=== PATIENT | male | born 1935 | race Caucasian/White ===

== ENCOUNTER → 2016-07-15 | Outpatient (CLI) | payer MEDICARE, BC ==
[~2016-07-15] MED LIST: 3N1 COMMODE MC; BUPR150T6 PO; CALC1TAB2 PO; LISI10TA2 PO; LOSA25TA2 PO; MULT1CAP20 PO; OXYC-481 PO; TAMS-14 PO; WALK1EAC23 MC; WARF1TAB47 PO
--- NOTE | 2016-07-15 16:01 | RADRPT ---
PROCEDURE: XR pelvis/right hip. CLINICAL INDICATION: Hip pain TECHNIQUE: AP pelvis/AP and lateral right hip views available for review. 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 There is no change in the left total hip replacement . There is diffuse osteopenia. There is no evidence of loosening of the prosthesis. No fractures, disl ocation or osseous lesions are identified. The joints are unremarkable. There are normal soft tissue s. IMPRESSION: Diffuse osteopenia. 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 No change in left total hip replacement RPTAT: HGDB .Chidi Dorsey MD, MD Date Time Electronically viewed and signed by .Chidi Dorsey MD, on 07/15/2016 16:00 .B/
--- NOTE | 2016-07-15 16:04 | RADRPT ---
PROCEDURE: XR right knee. CLINICAL INDICATION: Knee pain TECHNIQUE: AP weightbearing, lateral weightbearing and sunrise views are available for review. COMPARISON: 09/05/2013 FINDINGS: There is mild osteoarthrosis involving the medial tibial femoral compartment (joint space narrowing) and the patellofemoral compartment (osteophytosis). There is diffuse osteopenia. No fractures are identified. No osseous lesions are identified. The soft tissues are unremarkable. 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 RPTAT: HGDB .Chidi Dorsey MD, MD Date Time Electronically viewed and signed by .Chidi Dorsey MD, MD on 07/15/2016 16:03 .B/
--- NOTE | 2016-07-15 16:06 | RADRPT ---
PROCEDURE: XR right tibia/fibula. CLINICAL INDICATION: Leg pain TECHNIQUE: AP and lateral views of the lower tibia and fibula available for review. COMPARISON: None available FINDINGS: There is diffuse osteopenia. No fractures are identified. No osseous lesions are identified. The joints are unremarkable. The soft tissues are unremarkable. IMPRESSION: Diffuse osteopenia Otherwise unremarkable examination RPTAT: HGDB .Chidi Dorsey MD, MD Date Time Electronically viewed and signed by .Chidi Dorsey MD, MD on 07/15/2016 16:05 .B/
== END | disposition home or self-care (01) ==
LOC: HKI 13:59
PROVIDERS: ATTEND Orthopaedic Surgery
DX: M79.661 Pain in right lower leg (principal); Z96.643 Presence of artificial hip joint, bilateral
CPT/HCPCS: 73502; 73562; 73590; G0463

== ENCOUNTER → 2016-11-18 | Outpatient (CLI) | payer MEDICARE, BC ==
--- NOTE | 2016-11-18 16:43 | RADRPT ---
PROCEDURE: XR Right hip and pelvis. CLINICAL INDICATION: Right hip pain. Pelvic pain. Postop. TECHNIQUE: Three views. Frontal pelvis. Frontal and lateral right hip. COMPARISON: 07/15/2016. FINDINGS: There is no fracture or dislocation. The soft tissues are normal. There is a right hip total arthroplasty which appears satisfactory. A plate and multiple screws are noted at this site. 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 There is a satisfactory appearing left hip total arthroplasty. There is no lytic or blastic lesion. There are degenerative changes of the lower lumbar spine. IMPRESSION: 1. Satisfactory postoperative appearance of both hips. 2. No acute abnormality. RPTAT: QQ .Ramon Rosales MD, MD Date Time Electronically viewed and signed by .Ramon Rosales MD, on 11/18/2016 16:42 .R/
== END | disposition home or self-care (01) ==
LOC: HKI 14:35
PROVIDERS: ATTEND Orthopaedic Surgery
DX: Z47.1 Aftercare following joint replacement surgery (principal); Z96.641 Presence of right artificial hip joint; M25.551 Pain in right hip
CPT/HCPCS: 73502